=== PATIENT | female | born 1955 | race African-American/Black ===

== ENCOUNTER 2021-09-30 16:33 | Inpatient (IN) | payer OTHER, MEDICAID ==
[~2021-09-30] VITALS: Ht 162.6 cm; Wt 59.0 kg
[~2021-09-30 16:33] MED LIST: ASPI-1406 PO; ATOR40TA70 PO; CHOL50003 PO; FOLI-43 PO; FURO40TA5 PO; HYDR200T35 PO; METO-396 PO; OMEP40CA20 PO; PRED2.5T4 PO
[2021-09-30] MEDS ORDERED: NITROGLYCERIN OINT 1GM/INCH UDPKT TD ONE (19:15)
[2021-09-30] MEDS ORDERED: ASPIRIN 81MG TABLET PO ONE (19:15)
[2021-09-30] MEDS ORDERED: FUROSEMIDE 40MG/4ML VIAL IV ONE (19:15)
[2021-09-30] MEDS ORDERED: NITROGLYCERIN OINT 1GM/INCH UDPKT TD NR (21:18)
[2021-09-30] MEDS ORDERED: FUROSEMIDE 40MG/4ML VIAL IV NR (21:18)
[2021-09-30] MEDS ORDERED: ASPIRIN 81MG TABLET PO NR (21:18)
[2021-09-30 21:41] LABS: EOSINOPHILS % 2.2 % (0.0-5.0); HEMATOCRIT. 37.3 % (36.0-48.0); HEMOGLOBIN. 11.3 g/dL (12.0-16.0); LYMPHOCYTES % 27.3 % (20.0-50.0); MEAN CORPUSCULAR HEMOGLOBIN 23.3 pg (28.0-32.0); MEAN CORPUSCULAR VOLUME 77.2 fL (81.0-99.0); MONOCYTES % 7.4 % (2.0-8.0); NEUTROPHILS % 62.1 % (40.0-76.0); PLATELET 195 x1000/uL (130-400); RED BLOOD CELL COUNT 4.83 mill/uL (4.2-5.4); RED CELL DISTRIBUTION WIDTH 19.9 % (11.6-14.6)
[2021-09-30 21:46] LABS: CHLORIDE 108 mEq/L (98-107)
[2021-09-30 22:33] LABS: CLARITY URINE CLEAR (CLEAR); COLOR URINE YELLOW (YELLOW); KETONES URINE NEGATIVE (NEGATIVE); LEUKOCYTE ESTERASE URINE TRACE (NEGATIVE); NITRITE URINE NEGATIVE (NEGATIVE); OCCULT BLOOD URINE NEGATIVE (NEGATIVE); PROTEIN URINE 1+ (NEGATIVE); UROBILINOGEN URINE 0.2 E.U./dL (0.2-1.0)
[2021-10-01] MEDS ORDERED: ONDANSETRON HCL 4MG/2ML INJ IV PRN (10:00)
[2021-10-01] MEDS ORDERED: DOCUSATE SODIUM 100MG CAPSULE PO PRN (10:00)
[2021-10-01] MEDS ORDERED: IPRATROPIUM/ALBUTEROL 0.5-3(2.5)MG/3ML NEB NEB PRN (10:00)
[2021-10-01] MEDS ORDERED: NA PHOS,M-B/NA PHOS,DI-BA ENEMA 118ML PR PRN (10:00)
[2021-10-01] MEDS ORDERED: ACETAMINOPHEN 325MG TABLET PO PRN (10:00)
[2021-10-01] MEDS ORDERED: DIPHENHYDRAMINE 50MG/ML VIAL IV PRN (10:00)
[2021-10-01] MEDS ORDERED: MAGNESIUM/ALUMINUM HYDROXIDE/SIMETHICONE 30ML UDC PO PRN (10:00)
[2021-10-01] MEDS ORDERED: GUAIFENESIN 200MG/10ML SUGAR FREE UDC PO PRN (10:00)
[2021-10-01] MEDS ORDERED: HYDROCODONE/ACETAMINOPHEN 5/325MG TABLET PO PRN (10:00)
[2021-10-01] MEDS ORDERED: LORAZEPAM 0.5MG TABLET PO PRN (10:00)
[2021-10-01] MEDS ORDERED: ACETAMINOPHEN 650MG SUPP PR PRN (10:00)
[2021-10-01] MEDS ORDERED: CLONIDINE 0.1MG TABLET PO PRN (10:00)
[2021-10-01 10:35] VITALS: BP 159/57
[2021-10-01] MEDS ORDERED: CEFTRIAXONE 1 G PREMIX 50 ML IV NR (11:00)
[2021-10-01] MEDS: FUROSEMIDE 40MG/4ML VIAL IV SCH (11:18)
[2021-10-01] MEDS: METHYLPREDNISOLONE SOD SUCC 40 MG/ML VIAL IV SCH ×2 (11:18→20:24)
[2021-10-01] MEDS: ENOXAPARIN 40MG/0.4ML SYR SUBCUT SCH (11:46)
[2021-10-01 11:47] LABS: BG BASE EXCESS 2.9 mmol/L (-2.0-2.0); BG CARBOXYHEMOGLOBIN 0.7 % (0.5-1.5); BG DEOXYHEMOGLOBIN 5.3 % (0.0-5.0); BG FRACTION INSPIRED OXYGEN 21; BG HCO3 ACT 27.3 mmol/L (22.0-26.0); BG METHEMOGLOBIN 0.3 % (0.0-1.5); BG OXYGEN SATURATION 94.6 % (92.0-98.5); BG OXYHEMOGLOBIN 93.7 % (94.0-97.0); BG PCO2 41.3 mmHg (35.0-45.0); BG PH 7.438 (7.350-7.450); BG PO2 74.7 mmHg (75.0-100.0); BG SAMPLE SITE RIGHT RADIAL; BG TOTAL HEMOGLOBIN 12.5 g/dL (12.0-18.0); BG VENT MODE ROOM AIR
[2021-10-01 12:00] VITALS: BP 131/70
[2021-10-01] MEDS ORDERED: AZITHROMYCIN 500 MG in DEXT 5% WATER 250 ML IV SCH (12:00)
[2021-10-01] MEDS: IPRATROPIUM/ALBUTEROL 0.5-3(2.5)MG/3ML NEB NEB SCH ×2 (12:25→20:40)
[2021-10-01 14:14] LABS: BASOPHILS % 0.6 % (0.0-2.0); EOSINOPHILS % 1.6 % (0.0-5.0); HEMATOCRIT. 39.9 % (36.0-48.0); HEMOGLOBIN. 12.2 g/dL (12.0-16.0); LYMPHOCYTES % 7.8 % (20.0-50.0); MEAN CORPUSCULAR HEMOGLOBIN 23.1 pg (28.0-32.0); MEAN CORPUSCULAR VOLUME 75.2 fL (81.0-99.0); MEAN PLATELET VOLUME 10.3 fl (7.4-10.4); MONOCYTES % 2.8 % (2.0-8.0); NEUTROPHILS % 87.2 % (40.0-76.0); PLATELET 237 x1000/uL (130-400); RED BLOOD CELL COUNT 5.31 mill/uL (4.2-5.4); RED CELL DISTRIBUTION WIDTH 19.9 % (11.6-14.6)
[2021-10-01 14:25] LABS: INR 1.1
[2021-10-01 14:47] LABS: CHLORIDE 103 mEq/L (98-107)
[2021-10-01 14:55] LABS: CREATINE KINASE MB FRACTION 1.9 ng/mL (0.5-3.6)
[2021-10-01 16:00] VITALS: BP 111/72
[2021-10-01] MEDS: ASPIRIN 81MG TABLET PO SCH (16:27)
[2021-10-01] MEDS: CLOPIDOGREL 75MG TABLET PO SCH (16:27)
[2021-10-01 17:40] LABS: *AMPHETAMINES SCREEN URINE NEGATIVE (NEGATIVE); *BARBITURATES SCREEN URINE NEGATIVE (NEGATIVE); *BENZODIAZEPINES SCREEN URINE NEGATIVE (NEGATIVE); *COCAINE SCREEN URINE PRESUMTIVE POSITIVE (NEGATIVE); METHADONE URINE SCREEN NEGATIVE (NEGATIVE)
[2021-10-01 17:41] LABS: CANNABINOID URINE SCREEN NEGATIVE (NEGATIVE); OPIATES URINE SCREEN NEGATIVE (NEGATIVE); PHENCYCLIDINE URINE SCREEN NEGATIVE (NEGATIVE)
[2021-10-01 19:05] VITALS: BP 159/57
[2021-10-01 20:00] VITALS: BP 121/71
[2021-10-01] MEDS ORDERED: NALOXONE HCL 0.4MG/ML VIAL IV PRN (20:15)
[2021-10-01] MEDS ORDERED: FAMOTIDINE 20MG TABLET PO SCH (21:00)
[2021-10-02] VITALS: BP 135/89
[2021-10-02 00:47] LABS: CREATINE KINASE MB FRACTION 1.6 ng/mL (0.5-3.6)
[2021-10-02] MEDS: IPRATROPIUM/ALBUTEROL 0.5-3(2.5)MG/3ML NEB NEB SCH ×3 (01:12→14:16)
[2021-10-02 04:00] VITALS: BP 116/61
[2021-10-02] MEDS: METHYLPREDNISOLONE SOD SUCC 40 MG/ML VIAL IV SCH ×2 (05:47→10:27)
[2021-10-02] MEDS ORDERED: CEFTRIAXONE 1,000 MG in DEXTROSE 5% WATER 50 ML IV SCH ×2 (08:00→11:00)
[2021-10-02 08:02] VITALS: BP 130/84
[2021-10-02] MEDS ORDERED: AZITHROMYCIN 500 MG in DEXT 5% WATER 250 ML IV SCH (09:00)
[2021-10-02] MEDS: ASPIRIN 81MG TABLET PO SCH (09:34)
[2021-10-02] MEDS: FUROSEMIDE 40MG/4ML VIAL IV SCH (09:34)
[2021-10-02] MEDS: CLOPIDOGREL 75MG TABLET PO SCH (09:34)
[2021-10-02 10:09] LABS: CHLORIDE 103 mEq/L (98-107); HEMATOCRIT. 36.6 % (36.0-48.0); HEMOGLOBIN. 11.3 g/dL (12.0-16.0); MEAN CORPUSCULAR HEMOGLOBIN 23.2 pg (28.0-32.0); MEAN PLATELET VOLUME 10.4 fl (7.4-10.4); PLATELET 229 x1000/uL (130-400); RED BLOOD CELL COUNT 4.89 mill/uL (4.2-5.4); RED CELL DISTRIBUTION WIDTH 19.8 % (11.6-14.6)
[2021-10-02] MEDS: ENOXAPARIN 40MG/0.4ML SYR SUBCUT SCH (10:28)
[2021-10-02 12:17] VITALS: BP 111/71
[2021-10-02] MEDS ORDERED: ASPI-1406 PO (13:51)
[2021-10-02] MEDS ORDERED: FURO40TA5 PO (13:51)
[2021-10-02] MEDS ORDERED: IPRA3AMP9 NEB (13:51)
[2021-10-02] MEDS ORDERED: ATOR40TA70 PO (13:51)
[2021-10-02] MEDS ORDERED: METO-396 PO (13:51)
[2021-10-02] MEDS ORDERED: P20 PO (13:51)
[2021-10-02] MEDS ORDERED: LOSA25TA3 MT (13:51)
[2021-10-02] MEDS ORDERED: SILDENAFIL CITRATE 20MG TABLET PO SCH (15:00)
[2021-10-02] MEDS ORDERED: TETR15DR17 OP (15:50)
[2021-10-02 16:00] VITALS: BP 104/66
[2021-10-02 18:15] VITALS: BP 104/66
[2021-10-03 14:04] LABS: PLATELET ESTIMATE NORMAL
== END 2021-10-02 19:37 | disposition home or self-care (01) | DRG 291 ==
LOC: ER 16:33 → 8WST 10-01 00:27 → ENRESERV 10-01 09:37
PROVIDERS: ADMIT Internal Medicine; ATTEND Internal Medicine
DX: I11.0 Hypertensive heart disease with heart failure (principal); I50.43 Acute on chronic combined systolic (congestive) and diastolic (congestive) heart failure; J44.1 Chronic obstructive pulmonary disease with (acute) exacerbation; N39.0 Urinary tract infection, site not specified; I27.20 Pulmonary hypertension, unspecified; I25.10 Atherosclerotic heart disease of native coronary artery without angina pectoris; Z95.1 Presence of aortocoronary bypass graft; Z79.899 Other long term (current) drug therapy; Z79.82 Long term (current) use of aspirin; I69.328 Other speech and language deficits following cerebral infarction; I69.398 Other sequelae of cerebral infarction
CPT/HCPCS: 36415; 36600; 71045; 80048; 80053; 80305; 81003; 82375; 82550; 82553; 82805; 83880; 84443; 84484; 85025; 93005; 93306; 93923; 93970; 94640; 97162; 99285; J0456; J0696; J1650; J1940; J2920; J7060

== ENCOUNTER 2022-02-09 20:02 | Inpatient (IN) | payer MEDICAID, MEDICARE, OTHER ==
[~2022-02-09] VITALS: Ht 157.5 cm; Wt 60.3 kg
[~2022-02-09 20:02] MED LIST changes: +ALBU6.7H9 INH; +AMLO5TAB88 PO; +COR3 PO; +FURO-151 MT; +IPRA3AMP9 NEB; +LOSA25TA3 PO; +MED4 MT; -METO-396 PO; -PRED2.5T4 PO; +TETR15DR17 OP
[2022-02-09 21:06] LABS: EOSINOPHILS % 2.4 % (0.0-5.0); HEMATOCRIT. 39.6 % (36.0-48.0); HEMOGLOBIN. 12.2 g/dL (12.0-16.0); LYMPHOCYTES % 20.7 % (20.0-50.0); MEAN CORPUSCULAR HEMOGLOBIN 24.7 pg (28.0-32.0); MEAN CORPUSCULAR VOLUME 80.4 fL (81.0-99.0); MEAN PLATELET VOLUME 9.5 fl (7.4-10.4); MONOCYTES % 9.9 % (2.0-8.0); PLATELET 211 x1000/uL (130-400); RED BLOOD CELL COUNT 4.93 mill/uL (4.2-5.4); RED CELL DISTRIBUTION WIDTH 25.5 % (11.6-14.6)
[2022-02-09 21:17] LABS: CHLORIDE 106 mEq/L (98-107)
[2022-02-09 21:39] LABS: PLATELET ESTIMATE NORMAL
[2022-02-09] MEDS ORDERED: CEFTRIAXONE 1 G PREMIX 50 ML IV ONE (21:45)
[2022-02-09] MEDS ORDERED: AZITHROMYCIN 500MG/250ML 250 ML IV ONE (21:45)
[2022-02-09] MEDS ORDERED: IPRATROPIUM BROMIDE (0.02%) 0.5MG/2.5ML NEB HHN STA (23:07)
[2022-02-09] MEDS ORDERED: ALBUTEROL (0.083%) 2.5MG/3ML NEB HHN STA (23:07)
[2022-02-09] MEDS ORDERED: NITROGLYCERIN OINT 1GM/INCH UDPKT TD ONE (23:15)
[2022-02-09] MEDS ORDERED: FUROSEMIDE 40MG/4ML VIAL IV ONE (23:15)
[2022-02-09] MEDS ORDERED: ONDANSETRON HCL 4MG/2ML INJ IV ONE (23:45)
[2022-02-10] VITALS (12 sets, daily range): BP systolic 125–155; BP diastolic 46–101
[2022-02-10] MEDS ORDERED: ACETAMINOPHEN 325MG TABLET PO PRN (10:45)
[2022-02-10] MEDS ORDERED: ONDANSETRON HCL 4MG/2ML INJ IV PRN (10:45)
[2022-02-10] MEDS ORDERED: IPRATROPIUM/ALBUTEROL 0.5-3(2.5)MG/3ML NEB HHN PRN (10:45)
[2022-02-10] MEDS ORDERED: CLONIDINE 0.1MG TABLET PO PRN (10:45)
[2022-02-10] MEDS: ENOXAPARIN 40MG/0.4ML SYR SUBCUT SCH (11:21)
[2022-02-10] MEDS: METHYLPREDNISOLONE SOD SUCC 40 MG/ML VIAL IV SCH ×2 (11:22→18:46)
[2022-02-10] MEDS: FUROSEMIDE 40MG/4ML VIAL IVP SCH (11:22)
[2022-02-10] MEDS: LEVOFLOXACIN 500MG PREMIX 100 ML IV SCH (13:38)
[2022-02-10 15:53] LABS: *AMPHETAMINES SCREEN URINE NEGATIVE (NEGATIVE); *BARBITURATES SCREEN URINE NEGATIVE (NEGATIVE); *BENZODIAZEPINES SCREEN URINE NEGATIVE (NEGATIVE); *COCAINE SCREEN URINE NEGATIVE (NEGATIVE); CANNABINOID URINE SCREEN NEGATIVE (NEGATIVE); METHADONE URINE SCREEN NEGATIVE (NEGATIVE); OPIATES URINE SCREEN NEGATIVE (NEGATIVE); PHENCYCLIDINE URINE SCREEN NEGATIVE (NEGATIVE)
[2022-02-10 15:55] LABS: CREATINE KINASE MB FRACTION 2.2 ng/mL (0.5-3.6)
[2022-02-11] VITALS (9 sets, daily range): BP systolic 112–135; BP diastolic 67–93
[2022-02-11 00:14] LABS: CREATINE KINASE MB FRACTION 2.4 ng/mL (0.5-3.6)
[2022-02-11] MEDS: METHYLPREDNISOLONE SOD SUCC 40 MG/ML VIAL IV SCH ×3 (02:19→17:27)
[2022-02-11] MEDS: FUROSEMIDE 40MG/4ML VIAL IVP SCH (07:52)
[2022-02-11] MEDS: ENOXAPARIN 40MG/0.4ML SYR SUBCUT SCH (10:33)
[2022-02-11 12:23] LABS: HEMATOCRIT. 38.1 % (36.0-48.0); HEMOGLOBIN. 11.6 g/dL (12.0-16.0); MEAN CORPUSCULAR HEMOGLOBIN 24.3 pg (28.0-32.0); MEAN CORPUSCULAR VOLUME 79.4 fL (81.0-99.0); MEAN PLATELET VOLUME 9.6 fl (7.4-10.4); PLATELET 229 x1000/uL (130-400); RED CELL DISTRIBUTION WIDTH 24.3 % (11.6-14.6)
[2022-02-11 12:35] LABS: CHLORIDE 103 mEq/L (98-107)
[2022-02-11 13:15] LABS: PLATELET ESTIMATE NORMAL
[2022-02-11] MEDS: LEVOFLOXACIN 500MG PREMIX 100 ML IV SCH (13:24)
[2022-02-12] VITALS: BP 129/98
[2022-02-12] MEDS: METHYLPREDNISOLONE SOD SUCC 40 MG/ML VIAL IV SCH ×3 (01:50→18:23)
[2022-02-12 04:00] VITALS: BP 123/73
[2022-02-12 08:00] VITALS: BP 136/91
[2022-02-12] MEDS: FUROSEMIDE 40MG/4ML VIAL IVP SCH (09:30)
[2022-02-12] MEDS: ENOXAPARIN 40MG/0.4ML SYR SUBCUT SCH (10:40)
[2022-02-12] MEDS: LEVOFLOXACIN 500MG TABLET PO SCH (11:20)
[2022-02-12 12:00] VITALS: BP 111/64
[2022-02-12] MEDS ORDERED: P20 MT (12:56)
[2022-02-12] MEDS ORDERED: FLUT1DIS3 INH (12:56)
[2022-02-12] MEDS ORDERED: ALBU6.7H9 INH (12:56)
[2022-02-12] MEDS ORDERED: LOSA25TA3 PO (12:57)
[2022-02-12] MEDS ORDERED: COR3 PO (12:57)
[2022-02-12] MEDS ORDERED: FURO-151 MT (12:57)
[2022-02-12 16:00] VITALS: BP 121/71
[2022-02-12 20:00] VITALS: BP 141/75
[2022-02-13] VITALS: BP 127/74
[2022-02-13] MEDS: METHYLPREDNISOLONE SOD SUCC 40 MG/ML VIAL IV SCH ×2 (03:08→08:53)
[2022-02-13 04:00] VITALS: BP 134/77
[2022-02-13 08:00] VITALS: BP 135/89
[2022-02-13] MEDS: FUROSEMIDE 40MG/4ML VIAL IVP SCH (08:53)
[2022-02-13] MEDS: LEVOFLOXACIN 500MG TABLET PO SCH (08:53)
[2022-02-13] MEDS: ENOXAPARIN 40MG/0.4ML SYR SUBCUT SCH (08:54)
[2022-02-13 12:29] VITALS: BP 106/75
== END 2022-02-13 13:35 | disposition home or self-care (01) | DRG 140 ==
LOC: ER 20:02 → 5EST 02-10 00:16 → ENRESERV 02-10 06:30 → 7WST 02-11 10:55
PROVIDERS: ADMIT Internal Medicine; ATTEND Internal Medicine
PROC: 5A09357 Assistance with Respiratory Ventilation, Less than 24 Consecutive Hours, Continuous Positive Airway Pressure (ICD-10-PCS; principal; 2022-02-10)
DX: J44.1 Chronic obstructive pulmonary disease with (acute) exacerbation (principal); J96.21 Acute and chronic respiratory failure with hypoxia; I50.23 Acute on chronic systolic (congestive) heart failure; Z20.822 Contact with and (suspected) exposure to COVID-19; I11.0 Hypertensive heart disease with heart failure; I42.9 Cardiomyopathy, unspecified; J84.9 Interstitial pulmonary disease, unspecified; E87.6 Hypokalemia; I25.10 Atherosclerotic heart disease of native coronary artery without angina pectoris; E78.5 Hyperlipidemia, unspecified; F14.10 Cocaine abuse, uncomplicated; I25.2 Old myocardial infarction; Z79.899 Other long term (current) drug therapy
CPT/HCPCS: 36415; 71045; 80053; 80305; 82553; 83605; 83880; 84484; 85025; 87426; 93005; 94640; 94660; 99291; C9803; J0456; J0696; J1650; J1940; J1956; J2405; J2920

== ENCOUNTER 2022-03-25 22:25 | Inpatient (IN) | payer OTHER, MEDICAID ==
[~2022-03-25] VITALS: Ht 167.6 cm; Wt 65.8 kg
[~2022-03-25 22:25] MED LIST changes: +FLUT1DIS3 INH; -MED4 MT; +P20 MT
[2022-03-25] MEDS ORDERED: ASPIRIN 81MG TABLET PO ONE (22:45)
[2022-03-25 23:25] LABS: BASOPHILS % 1.2 % (0.0-2.0); EOSINOPHILS % 4.1 % (0.0-5.0); HEMATOCRIT. 43.4 % (36.0-48.0); HEMOGLOBIN. 13.4 g/dL (12.0-16.0); LYMPHOCYTES % 20.9 % (20.0-50.0); MEAN CORPUSCULAR HEMOGLOBIN 24.6 pg (28.0-32.0); MEAN CORPUSCULAR VOLUME 79.7 fL (81.0-99.0); MONOCYTES % 11.3 % (2.0-8.0); NEUTROPHILS % 62.5 % (40.0-76.0); PLATELET 221 x1000/uL (130-400); RED BLOOD CELL COUNT 5.45 mill/uL (4.2-5.4); RED CELL DISTRIBUTION WIDTH 20.8 % (11.6-14.6)
[2022-03-25 23:28] LABS: CHLORIDE 110 mEq/L (98-107)
[2022-03-26 04:00] VITALS: BP 141/110
[2022-03-26] MEDS ORDERED: *PATIENT'S OWN MEDICATION STORAGE XX SCH (04:00)
[2022-03-26] MEDS ORDERED: CLONIDINE 0.1MG TABLET PO PRN (05:30)
[2022-03-26 08:00] VITALS: BP 134/85
[2022-03-26] MEDS: CARVEDILOL 6.25 MG TABLET PO SCH ×2 (09:00→17:31)
[2022-03-26] MEDS: ENOXAPARIN 40MG/0.4ML SYR SUBCUT SCH (09:00)
[2022-03-26] MEDS: ASPIRIN 81MG TABLET PO SCH (09:00)
[2022-03-26] MEDS: LOSARTAN POTASSIUM 50 MG TABLET PO SCH (11:30)
[2022-03-26 12:00] VITALS: BP 131/93
[2022-03-26] MEDS: FUROSEMIDE 40MG/4ML VIAL IVP SCH ×2 (13:44→21:22)
[2022-03-26 16:00] VITALS: BP 146/86
[2022-03-26 18:00] VITALS: BP 131/93
[2022-03-26 20:00] VITALS: BP 130/74
[2022-03-27] VITALS: BP 116/86
[2022-03-27 04:00] VITALS: BP 130/81
[2022-03-27 08:00] VITALS: BP 131/93
[2022-03-27] MEDS: ASPIRIN 81MG TABLET PO SCH (09:32)
[2022-03-27] MEDS: FUROSEMIDE 40MG/4ML VIAL IVP SCH ×2 (09:32→17:00)
[2022-03-27] MEDS: CARVEDILOL 6.25 MG TABLET PO SCH ×2 (09:32→17:00)
[2022-03-27] MEDS: LOSARTAN POTASSIUM 50 MG TABLET PO SCH (09:32)
[2022-03-27] MEDS: ENOXAPARIN 40MG/0.4ML SYR SUBCUT SCH (09:33)
[2022-03-27 12:00] VITALS: BP 119/74
[2022-03-27 13:19] LABS: CHLORIDE 105 mEq/L (98-107)
[2022-03-27 16:00] VITALS: BP 119/74
[2022-03-27 20:00] VITALS: BP 127/66
[2022-03-27 21:19] LABS: *AMPHETAMINES SCREEN URINE NEGATIVE (NEGATIVE); *BARBITURATES SCREEN URINE NEGATIVE (NEGATIVE); *BENZODIAZEPINES SCREEN URINE NEGATIVE (NEGATIVE); *COCAINE SCREEN URINE NEGATIVE (NEGATIVE); CANNABINOID URINE SCREEN NEGATIVE (NEGATIVE); METHADONE URINE SCREEN NEGATIVE (NEGATIVE); OPIATES URINE SCREEN NEGATIVE (NEGATIVE); PHENCYCLIDINE URINE SCREEN NEGATIVE (NEGATIVE)
[2022-03-28] VITALS: BP 119/61
[2022-03-28 04:00] VITALS: BP 113/66
[2022-03-28 08:00] VITALS: BP 113/71
[2022-03-28 08:28] LABS: CHLORIDE 104 mEq/L (98-107)
[2022-03-28 08:42] LABS: PHOSPHORUS 4.2 mg/dL (2.5-4.9)
[2022-03-28] MEDS: ENOXAPARIN 40MG/0.4ML SYR SUBCUT SCH ×2 (09:00→09:15)
[2022-03-28] MEDS: ASPIRIN 81MG TABLET PO SCH (09:14)
[2022-03-28] MEDS: LOSARTAN POTASSIUM 50 MG TABLET PO SCH (09:14)
[2022-03-28] MEDS: FUROSEMIDE 40MG/4ML VIAL IVP SCH ×2 (09:14→18:02)
[2022-03-28] MEDS: PREDNISONE 20MG TABLET PO SCH ×2 (09:15→18:02)
[2022-03-28] MEDS: CARVEDILOL 6.25 MG TABLET PO SCH ×2 (09:15→17:00)
[2022-03-28 12:00] VITALS: BP 107/68
[2022-03-28 16:00] VITALS: BP 110/76
[2022-03-28] MEDS ORDERED: BUDESONIDE 0.5MG/2ML NEB HHN SCH (18:30)
[2022-03-28 20:00] VITALS: BP 132/71
[2022-03-28] MEDS: OMEPRAZOLE 20MG CAPSULE EXTENDED RELEASE PO SCH (22:05)
[2022-03-29] VITALS: BP 140/81
[2022-03-29 04:00] VITALS: BP 119/81
[2022-03-29 08:00] VITALS: BP 123/85
[2022-03-29] MEDS: ENOXAPARIN 40MG/0.4ML SYR SUBCUT SCH (09:00)
[2022-03-29] MEDS: ASPIRIN 81MG TABLET PO SCH (09:10)
[2022-03-29] MEDS: PREDNISONE 20MG TABLET PO SCH ×2 (09:10→17:42)
[2022-03-29] MEDS: LOSARTAN POTASSIUM 50 MG TABLET PO SCH (09:11)
[2022-03-29] MEDS: CARVEDILOL 6.25 MG TABLET PO SCH ×2 (09:11→17:44)
[2022-03-29] MEDS: OMEPRAZOLE 20MG CAPSULE EXTENDED RELEASE PO SCH ×2 (09:11→22:03)
[2022-03-29] MEDS: FUROSEMIDE 40MG/4ML VIAL IVP SCH ×2 (09:12→17:42)
[2022-03-29 12:00] VITALS: BP 118/77
[2022-03-29 16:00] VITALS: BP 122/70
[2022-03-29 20:00] VITALS: BP 139/89
[2022-03-29 21:53] LABS: HEMATOCRIT. 38.5 % (36.0-48.0); HEMOGLOBIN. 11.9 g/dL (12.0-16.0); MEAN CORPUSCULAR HEMOGLOBIN 23.7 pg (28.0-32.0); MEAN CORPUSCULAR VOLUME 76.7 fL (81.0-99.0); MEAN PLATELET VOLUME 9.8 fl (7.4-10.4); PLATELET 207 x1000/uL (130-400); RED BLOOD CELL COUNT 5.02 mill/uL (4.2-5.4); RED CELL DISTRIBUTION WIDTH 20.5 % (11.6-14.6)
[2022-03-29 22:26] LABS: CHLORIDE 98 mEq/L (98-107)
[2022-03-29 22:43] LABS: PLATELET ESTIMATE NORMAL
[2022-03-30] VITALS: BP 134/85
[2022-03-30 04:00] VITALS: BP 129/81
[2022-03-30 08:00] VITALS: BP 98/63
[2022-03-30] MEDS: CARVEDILOL 6.25 MG TABLET PO SCH ×2 (09:00→17:43)
[2022-03-30] MEDS: ASPIRIN 81MG TABLET PO SCH (09:39)
[2022-03-30] MEDS: LOSARTAN POTASSIUM 50 MG TABLET PO SCH (09:39)
[2022-03-30] MEDS: ENOXAPARIN 40MG/0.4ML SYR SUBCUT SCH (09:39)
[2022-03-30] MEDS: PREDNISONE 20MG TABLET PO SCH ×2 (09:39→17:41)
[2022-03-30] MEDS: FUROSEMIDE 40MG/4ML VIAL IVP SCH ×2 (09:39→17:41)
[2022-03-30] MEDS: OMEPRAZOLE 20MG CAPSULE EXTENDED RELEASE PO SCH (09:43)
[2022-03-30 12:00] VITALS: BP 108/54
[2022-03-30 16:00] VITALS: BP 115/73
[2022-03-30 18:37] VITALS: BP 108/61
== END 2022-03-30 20:17 | disposition home or self-care (01) | DRG 291 ==
LOC: ER 22:25 → MICUSO 03-26 01:51 → ENRESERV 03-26 02:37 → 7WST 03-26 03:20
PROVIDERS: ADMIT Internal Medicine; ATTEND Internal Medicine
DX: I11.0 Hypertensive heart disease with heart failure (principal); I50.23 Acute on chronic systolic (congestive) heart failure; J96.01 Acute respiratory failure with hypoxia; I27.20 Pulmonary hypertension, unspecified; J44.9 Chronic obstructive pulmonary disease, unspecified; I42.9 Cardiomyopathy, unspecified; Z20.822 Contact with and (suspected) exposure to COVID-19; I16.0 Hypertensive urgency; Z79.899 Other long term (current) drug therapy; Z86.73 Personal history of transient ischemic attack (TIA), and cerebral infarction without residual deficits
CPT/HCPCS: 36415; 71045; 80048; 80053; 80305; 83605; 83735; 83880; 84100; 84145; 84484; 85025; 87426; 93005; 99285; C9803; J1650; J1940; J7512; J7626

== ENCOUNTER 2022-05-01 13:43 | Inpatient (IN) | payer OTHER, MEDICAID ==
[~2022-05-01] VITALS: Ht 165.1 cm; Wt 66.7 kg
[~2022-05-01 13:43] MED LIST changes: +ALBU6.7H3 INH; -ALBU6.7H9 INH
[2022-05-01] MEDS ORDERED: IPRATROPIUM BROMIDE (0.02%) 0.5MG/2.5ML NEB HHN STA (13:55)
[2022-05-01] MEDS ORDERED: METHYLPREDNISOLONE SOD SUCC 125 MG/2 ML VIAL IV STA (13:55)
[2022-05-01] MEDS ORDERED: ALBUTEROL (0.083%) 2.5MG/3ML NEB HHN STA (13:55)
[2022-05-01] MEDS ORDERED: FUROSEMIDE 40MG/4ML VIAL IV ONE (14:00)
[2022-05-01 14:25] LABS: BG BASE EXCESS -2.3 mmol/L (-2.0-2.0); BG CARBOXYHEMOGLOBIN 1.7 % (0.5-1.5); BG DEOXYHEMOGLOBIN 1.2 % (0.0-5.0); BG FRACTION INSPIRED OXYGEN 36; BG HCO3 ACT 21.2 mmol/L (22.0-26.0); BG METHEMOGLOBIN 0.6 % (0.0-1.5); BG OXYGEN SATURATION 98.8 % (92.0-98.5); BG OXYHEMOGLOBIN 96.5 % (94.0-97.0); BG PH 7.426 (7.350-7.450); BG SAMPLE SITE RIGHT RADIAL; BG TOTAL HEMOGLOBIN 14.7 g/dL (12.0-18.0); BG VENT MODE NASAL CANNULA
[2022-05-01 15:18] LABS: BASOPHILS % 0.8 % (0.0-2.0); EOSINOPHILS % 1.3 % (0.0-5.0); HEMATOCRIT. 45.3 % (36.0-48.0); HEMOGLOBIN. 13.9 g/dL (12.0-16.0); LYMPHOCYTES % 18.7 % (20.0-50.0); MEAN CORPUSCULAR HEMOGLOBIN 23.5 pg (28.0-32.0); MEAN CORPUSCULAR VOLUME 76.5 fL (81.0-99.0); MEAN PLATELET VOLUME 9.8 fl (7.4-10.4); NEUTROPHILS % 66.2 % (40.0-76.0); PLATELET 245 x1000/uL (130-400); RED BLOOD CELL COUNT 5.93 mill/uL (4.2-5.4); RED CELL DISTRIBUTION WIDTH 20.8 % (11.6-14.6)
[2022-05-01 15:24] LABS: CHLORIDE 107 mEq/L (98-107)
[2022-05-01 15:26] LABS: CLARITY URINE CLEAR (CLEAR); COLOR URINE DARK YELLOW (YELLOW); KETONES URINE NEGATIVE (NEGATIVE); LEUKOCYTE ESTERASE URINE TRACE (NEGATIVE); NITRITE URINE NEGATIVE (NEGATIVE); OCCULT BLOOD URINE TRACE (NEGATIVE); PH URINE 5.5 (4.5-8.0); PROTEIN URINE 3+ (NEGATIVE); SPECIFIC GRAVITY URINE 1.028 (1.005-1.030)
[2022-05-01 15:37] LABS: INR 1.2; PARTIAL THROMBOPLASTIN TIME 25.2 sec (23.4-31.0); PROTHROMBIN TIME 13.2 sec (9.6-11.0)
[2022-05-02] VITALS (8 sets, daily range): BP systolic 103–148; BP diastolic 67–99
[2022-05-02] MEDS ORDERED: ACETAMINOPHEN 325MG TABLET PO PRN (07:30)
[2022-05-02] MEDS: FUROSEMIDE 40MG/4ML VIAL IVP SCH (08:37)
[2022-05-02] MEDS: ASPIRIN 81MG TABLET PO SCH (08:37)
[2022-05-02] MEDS: POTASSIUM CHLORIDE 10MEQ TABLET SR PO SCH (08:39)
[2022-05-02] MEDS: PANTOPRAZOLE 40MG DR TABLET PO SCH (08:39)
[2022-05-02] MEDS: HEPARIN 5000 UNITS/ML VIAL SUBCUT SCH ×2 (08:39→21:50)
[2022-05-02] MEDS: CARVEDILOL 3.125 MG TABLET PO SCH ×2 (08:40→21:00)
[2022-05-02] MEDS: METHYLPREDNISOLONE SOD SUCC 125 MG/2 ML VIAL IV SCH ×2 (08:43→11:17)
[2022-05-02] MEDS: LEVOFLOXACIN 500MG PREMIX 100 ML IV SCH (11:16)
[2022-05-02 12:17] LABS: BASOPHILS % 0.3 % (0.0-2.0); HEMATOCRIT. 41.3 % (36.0-48.0); HEMOGLOBIN. 12.7 g/dL (12.0-16.0); LYMPHOCYTES % 7.8 % (20.0-50.0); MEAN CORPUSCULAR HEMOGLOBIN 23.4 pg (28.0-32.0); MEAN CORPUSCULAR VOLUME 76.4 fL (81.0-99.0); MEAN PLATELET VOLUME 10.5 fl (7.4-10.4); MONOCYTES % 7.1 % (2.0-8.0); NEUTROPHILS % 84.8 % (40.0-76.0); PLATELET 259 x1000/uL (130-400); RED CELL DISTRIBUTION WIDTH 20.8 % (11.6-14.6)
[2022-05-02] MEDS: ATORVASTATIN CALCIUM 40MG TABLET PO SCH (21:49)
[2022-05-03] VITALS (16 sets, daily range): BP systolic 117–157; BP diastolic 41–90
[2022-05-03] MEDS: METHYLPREDNISOLONE SOD SUCC 125 MG/2 ML VIAL IV SCH ×5 (00:47→23:34)
[2022-05-03] MEDS: POTASSIUM CHLORIDE 10MEQ TABLET SR PO SCH (09:59)
[2022-05-03] MEDS: ASPIRIN 81MG TABLET PO SCH (09:59)
[2022-05-03] MEDS: HEPARIN 5000 UNITS/ML VIAL SUBCUT SCH ×2 (10:00→22:00)
[2022-05-03] MEDS: PANTOPRAZOLE 40MG DR TABLET PO SCH (10:00)
[2022-05-03] MEDS: FUROSEMIDE 40MG/4ML VIAL IVP SCH (10:00)
[2022-05-03] MEDS: CARVEDILOL 3.125 MG TABLET PO SCH (10:00)
[2022-05-03] MEDS: LEVOFLOXACIN 500MG PREMIX 100 ML IV SCH (10:02)
[2022-05-03 10:25] LABS: HEMATOCRIT 44.3 % (36.0-48.0); HEMOGLOBIN 13.5 g/dL (12.0-16.0); MEAN CORPUSCULAR HEMOGLOBIN 23.3 pg (28.0-32.0); MEAN CORPUSCULAR VOLUME 76.5 fL (81.0-99.0); PLATELET 263 x1000/uL (130-400); RED BLOOD CELL COUNT 5.79 mill/uL (4.2-5.4); RED CELL DISTRIBUTION WIDTH 20.5 % (11.6-14.6)
[2022-05-03] MEDS ORDERED: DILTIAZEM HCL 5MG/ML 5ML VIAL IV PRN (10:30)
[2022-05-03] MEDS: ATORVASTATIN CALCIUM 40MG TABLET PO SCH (21:58)
[2022-05-03] MEDS: CARVEDILOL 6.25 MG TABLET PO SCH (22:00)
[2022-05-03] MEDS: IPRATROPIUM/ALBUTEROL 0.5-3(2.5)MG/3ML NEB HHN PRN (22:30)
[2022-05-04] VITALS (9 sets, daily range): BP systolic 94–147; BP diastolic 54–98
[2022-05-04] MEDS: METHYLPREDNISOLONE SOD SUCC 125 MG/2 ML VIAL IV SCH ×4 (07:04→23:27)
[2022-05-04] MEDS: ASPIRIN 81MG TABLET PO SCH (09:09)
[2022-05-04] MEDS: POTASSIUM CHLORIDE 10MEQ TABLET SR PO SCH (09:09)
[2022-05-04] MEDS: FAMOTIDINE 20MG TABLET PO SCH (09:10)
[2022-05-04] MEDS: HEPARIN 5000 UNITS/ML VIAL SUBCUT SCH ×2 (09:10→21:22)
[2022-05-04] MEDS: CARVEDILOL 6.25 MG TABLET PO SCH ×2 (09:12→21:00)
[2022-05-04] MEDS: FUROSEMIDE 40MG/4ML VIAL IVP SCH (09:13)
[2022-05-04] MEDS: LEVOFLOXACIN 500MG PREMIX 100 ML IV SCH (09:28)
[2022-05-04 13:07] LABS: HEMATOCRIT. 40.5 % (36.0-48.0); HEMOGLOBIN. 12.1 g/dL (12.0-16.0); MEAN CORPUSCULAR VOLUME 76.8 fL (81.0-99.0); MEAN PLATELET VOLUME 9.8 fl (7.4-10.4); PLATELET 241 x1000/uL (130-400); RED BLOOD CELL COUNT 5.27 mill/uL (4.2-5.4); RED CELL DISTRIBUTION WIDTH 20.3 % (11.6-14.6)
[2022-05-04 14:14] LABS: PLATELET ESTIMATE NORMAL
[2022-05-04] MEDS: ATORVASTATIN CALCIUM 40MG TABLET PO SCH (21:21)
[2022-05-04] MEDS: IPRATROPIUM/ALBUTEROL 0.5-3(2.5)MG/3ML NEB HHN PRN (21:25)
[2022-05-05 00:04] VITALS: BP 115/83
[2022-05-05] MEDS: IPRATROPIUM/ALBUTEROL 0.5-3(2.5)MG/3ML NEB HHN PRN ×3 (01:45→21:51)
[2022-05-05 04:02] VITALS: BP 137/77
[2022-05-05] MEDS: METHYLPREDNISOLONE SOD SUCC 125 MG/2 ML VIAL IV SCH ×4 (05:08→23:25)
[2022-05-05 08:03] VITALS: BP 127/88
[2022-05-05] MEDS: POTASSIUM CHLORIDE 10MEQ TABLET SR PO SCH (09:00)
[2022-05-05] MEDS: FUROSEMIDE 40MG/4ML VIAL IVP SCH (09:25)
[2022-05-05] MEDS: CARVEDILOL 6.25 MG TABLET PO SCH ×2 (09:26→21:33)
[2022-05-05] MEDS: ASPIRIN 81MG TABLET PO SCH (09:26)
[2022-05-05] MEDS: FAMOTIDINE 20MG TABLET PO SCH (09:26)
[2022-05-05] MEDS: HEPARIN 5000 UNITS/ML VIAL SUBCUT SCH ×2 (09:26→21:33)
[2022-05-05 12:03] VITALS: BP 142/88
[2022-05-05] MEDS: LEVOFLOXACIN 250MG TABLET PO SCH (12:26)
[2022-05-05 16:03] VITALS: BP 121/75
[2022-05-05 20:00] VITALS: BP 130/81
[2022-05-05] MEDS: ATORVASTATIN CALCIUM 40MG TABLET PO SCH (21:33)
[2022-05-06] VITALS: BP 127/72
[2022-05-06 04:00] VITALS: BP 132/78
[2022-05-06] MEDS: METHYLPREDNISOLONE SOD SUCC 125 MG/2 ML VIAL IV SCH ×2 (05:44→11:59)
[2022-05-06 08:27] VITALS: BP 112/72
[2022-05-06] MEDS ORDERED: FUROSEMIDE 20MG TABLET PO SCH (09:00)
[2022-05-06] MEDS: ASPIRIN 81MG TABLET PO SCH (09:06)
[2022-05-06] MEDS: CARVEDILOL 6.25 MG TABLET PO SCH (09:06)
[2022-05-06] MEDS: LEVOFLOXACIN 250MG TABLET PO SCH (09:06)
[2022-05-06] MEDS: POTASSIUM CHLORIDE 10MEQ TABLET SR PO SCH (09:06)
[2022-05-06] MEDS: FAMOTIDINE 20MG TABLET PO SCH (09:06)
[2022-05-06] MEDS ORDERED: P20 MT (11:29)
[2022-05-06] MEDS ORDERED: FURO40TA5 PO (11:29)
[2022-05-06] MEDS: HEPARIN 5000 UNITS/ML VIAL SUBCUT SCH (12:00)
[2022-05-06 12:16] VITALS: BP 132/96
[2022-05-06 15:03] VITALS: BP 20/128
[2022-05-07] MEDS ORDERED: P20 MT (09:49)
[2022-05-07] MEDS ORDERED: CARV3.1242 MT (09:49)
[2022-05-07] MEDS ORDERED: FURO-151 MT (09:49)
[2022-05-07] MEDS ORDERED: LOSA25TA26 MT (09:49)
== END 2022-05-06 17:42 | disposition home or self-care (01) | DRG 291 ==
LOC: ER 13:57 → 5EST 16:17 → EDBEDREQ 16:30 → ENRESERV 05-02 02:31 → 5EST 05-02 07:44 → 6WST 05-04 16:55
PROVIDERS: ADMIT Internal Medicine; ATTEND Internal Medicine
PROC: 5A09357 Assistance with Respiratory Ventilation, Less than 24 Consecutive Hours, Continuous Positive Airway Pressure (ICD-10-PCS; principal; 2022-05-01)
DX: I11.0 Hypertensive heart disease with heart failure (principal); I50.23 Acute on chronic systolic (congestive) heart failure; I47.20 Ventricular tachycardia, unspecified; J44.1 Chronic obstructive pulmonary disease with (acute) exacerbation; N17.9 Acute kidney failure, unspecified; R14.0 Abdominal distension (gaseous); Z20.822 Contact with and (suspected) exposure to COVID-19; I27.20 Pulmonary hypertension, unspecified; I48.91 Unspecified atrial fibrillation; Z87.891 Personal history of nicotine dependence; Z79.51 Long term (current) use of inhaled steroids; Z79.899 Other long term (current) drug therapy; Z95.2 Presence of prosthetic heart valve; Z86.73 Personal history of transient ischemic attack (TIA), and cerebral infarction without residual deficits
CPT/HCPCS: 36415; 36600; 71045; 74176; 76705; 80048; 80053; 81003; 82375; 82805; 82962; 83880; 84484; 85025; 85027; 87426; 92950; 93005; 93306; 94640; 99291; C1893; C9803; J1644; J1940; J1956; J2930